=== PATIENT | male | born 1995 | race Two or more races ===

== ENCOUNTER 2024-07-17 17:42 | Emergency (ER) | payer MEDICAID ==
[~2024-07-17] VITALS: Ht 170.2 cm; Wt 95.4 kg
[2024-07-17 17:48] VITALS: BP 122/85; PULSE 101; RESP 18; TEMP 98.2; O2SAT 96
[2024-07-17] MEDS ORDERED: CEPH-558 PO (18:49)
[2024-07-17] MEDS ORDERED: SULF-261 PO (18:49)
[2024-07-17] MEDS: LIDOCAINE/PF 1% 2 ML VIAL IM ONE (19:01)
[2024-07-17] MEDS: CefTRIAXone SODIUM 1 GM/VIAL IM ONE (19:01)
== END 2024-07-17 19:13 | disposition home or self-care (01) ==
LOC: EMS 17:42
DX: L03.113 Cellulitis of right upper limb (principal)
CPT/HCPCS: 99283; 96372; J0696; J3490